=== PATIENT | female | born 1960 | race Caucasian/White ===

== ENCOUNTER 2017-12-14 12:29 | Outpatient (CLI) | payer OTHER ==
[~2017-12-14 12:29] MED LIST: CEFADROXIL500 MG PO
== END 2017-12-14 12:38 | disposition home or self-care (01) ==
LOC: MAMO-SONO 12:29
DX: Z12.31 Encounter for screening mammogram for malignant neoplasm of breast (principal); N60.11 Diffuse cystic mastopathy of right breast

== ENCOUNTER 2019-01-06 10:32 | Outpatient (CLI) | payer OTHER | END 2019-01-06 13:09 | disposition home or self-care (01) | LOC: MAMO-SONO 10:32 | DX: N60.11 Diffuse cystic mastopathy of right breast (principal); Z12.31 Encounter for screening mammogram for malignant neoplasm of breast ==

== ENCOUNTER → 2019-01-17 | Outpatient (CLI) | payer OTHER | END | disposition home or self-care (01) | LOC: SONOGRAMA 14:18 → MAMO-SONO 14:45 | DX: E07.89 Other specified disorders of thyroid (principal) ==

== ENCOUNTER 2020-06-14 10:11 | Outpatient (CLI) | payer OTHER | END 2020-06-14 10:31 | disposition home or self-care (01) | LOC: MAMO-SONO 10:11 | PROVIDERS: ATTEND Obstetrics & Gynecology | DX: Z12.31 Encounter for screening mammogram for malignant neoplasm of breast (principal); N60.11 Diffuse cystic mastopathy of right breast ==

== ENCOUNTER 2022-09-04 12:07 | Outpatient (CLI) | payer OTHER | END 2022-09-04 12:14 | disposition home or self-care (01) | LOC: RAD 12:07 | PROVIDERS: ATTEND Family Medicine | DX: R10.817 Generalized abdominal tenderness (principal); M46.1 Sacroiliitis, not elsewhere classified ==

== ENCOUNTER 2022-12-01 10:03 | Outpatient (CLI) | payer OTHER | END 2022-12-01 10:22 | disposition home or self-care (01) | LOC: TOM 10:03 | PROVIDERS: ATTEND Family Medicine | DX: R10.32 Left lower quadrant pain (principal) ==

== ENCOUNTER 2023-04-19 13:31 | Outpatient (CLI) | payer OTHER | END 2023-04-19 13:38 | disposition home or self-care (01) | LOC: MAMO-SONO 13:31 | PROVIDERS: ATTEND Obstetrics & Gynecology | DX: N60.11 Diffuse cystic mastopathy of right breast (principal); Z12.31 Encounter for screening mammogram for malignant neoplasm of breast ==

== ENCOUNTER 2023-04-20 08:00 | Outpatient (CLI) | payer OTHER | END 2023-04-20 08:07 | disposition home or self-care (01) | LOC: SONOGRAMA 08:00 | PROVIDERS: ATTEND Family Medicine | DX: R10.2 Pelvic and perineal pain (principal); R10.32 Left lower quadrant pain; N85.01 Benign endometrial hyperplasia; K76.89 Other specified diseases of liver ==

== ENCOUNTER 2024-03-17 09:03 | Outpatient (CLI) | payer OTHER | END 2024-03-17 09:11 | disposition home or self-care (01) | LOC: SONOGRAMA 09:03 | PROVIDERS: ATTEND Family Medicine | DX: K76.89 Other specified diseases of liver (principal) ==